=== PATIENT | male | born 1930 | race Caucasian/White ===

== ENCOUNTER → 2017-08-25 | Emergency (ER) | payer OTHER ==
[~2017-08-25] VITALS: Ht 157.5 cm; Wt 49.9 kg
[~2017-08-25] MED LIST: CLONAZEPAM0.5 MG; DILANTIN30 MG; SIMVASTATIN5 MG
== END | disposition home or self-care (01) ==
LOC: ER 10:57
DX: R41.0 Disorientation, unspecified (principal)

== ENCOUNTER → 2017-09-02 | Emergency (ER) | payer OTHER ==
[~2017-09-02] VITALS: Ht 165.1 cm; Wt 54.4 kg
== END | disposition expired ==
LOC: ER 05:06
DX: A41.9 Sepsis, unspecified organism (principal); K92.2 Gastrointestinal hemorrhage, unspecified; J11.1 Influenza due to unidentified influenza virus with other respiratory manifestations; J69.0 Pneumonitis due to inhalation of food and vomit; J96.00 Acute respiratory failure, unspecified whether with hypoxia or hypercapnia; Z66 Do not resuscitate